=== PATIENT | female | born 1975 | race Caucasian/White ===

== ENCOUNTER 2016-11-21 12:54 | Emergency (ER) | payer OTHER ==
[~2016-11-21] VITALS: Ht 162.6 cm; Wt 105.0 kg
[~2016-11-21 12:54] MED LIST: CHILDREN'S CHE1 EACH PO; GLUCOPHAGE XR,500 MG PO; GLUCOPHAGE500 MG PO; HYDROCODON-ACE1 EAC7 PO; LOPRESSOR25 MG PO; VITAMIN B-121000 MC1 SL; VOLTAREN75 MG PO; ZOFRAN4 MG PO
[2016-11-21 13:26] LABS: HEMATOCRIT 43.4 % (36.0-46.0); MCH 28.8 PG (29.0-34.0); MCHC 34.3 G/DL (30.0-36.0); MCV 83.8 FL (83-99); MEAN PLAT.VOLUME 10.3 uM^3 (9.5-12.4); PLATELET COUNT 226 K/uL (156-360); RBC DIS.WIDTH-CV 11.9 % (11.8-14.6); RBC DIS.WIDTH-SD 35.8 % (39-53); RED BLOOD COUNT 5.18 M/uL (3.80-5.20); WHITE BLOOD COUNT 9.4 K/uL (4.1-10.2)
[2016-11-21 13:34] LABS: CHLORIDE 105 mEq/L (99-109); POTASSIUM 3.6 mEq/L (3.7-5.4); SODIUM 138 mEq/L (136-147)
[2016-11-21 13:37] LABS: GLUCOSE 97 mg/dL (70-99)
[2016-11-21 13:38] LABS: ANION GAP 13 MEQ/L (2-14); TOTAL BILIRUBIN 0.9 mg/dL (0.0-1.0)
[2016-11-21 13:40] LABS: ALKALINE PHOSPHATASE 69 IU/L (3-129); GFR ESTIMATE (CALCULATED) > 59 mL/min/
[2016-11-21 13:41] LABS: UREA NITROGEN (BUN) 10 mg/dL (9-23)
[2016-11-21 13:49] LABS: QUANTITATIVE HCG < 4.0 MIU/ML
[2016-11-21 13:52] LABS: ADD MIUA? YES; BILIRUBIN NEGATIVE; BLOOD MODERATE; COLOR YELLOW ((YELLOW)); GLUCOSE (STRIP) NEGATIVE; KETONES NEGATIVE; LEUKOCYTES LARGE; NITRITE NEGATIVE; PROTEIN (STRIP) 30; SPECIFIC GRAVITY 1.011 (1.000-1.030)
[2016-11-21 13:59] LABS: BACTERIA 1+ /HPF; EPITHELIAL CELLS 1+ /HPF; MUCUS TRACE /LPF; UCUL ADDED? NO; WHITE BLOOD CELLS 30-40 /HPF (0-5)
[2016-11-21] MEDS ORDERED: OMEPRAZOLE40 M1 PO (15:32)
[2016-11-21 15:41] VITALS: BP 112/69
== END 2016-11-21 15:42 | disposition home or self-care (01) ==
LOC: EME 12:54
DX: R10.13 Epigastric pain (principal); Z98.84 Bariatric surgery status; Z90.49 Acquired absence of other specified parts of digestive tract; I10 Essential (primary) hypertension; E11.9 Type 2 diabetes mellitus without complications; Z79.84 Long term (current) use of oral hypoglycemic drugs; Z87.891 Personal history of nicotine dependence
CPT/HCPCS: 71020; 74176; 80053; 81003; 84702; 85027; 99281; 99284

== ENCOUNTER → 2017-02-27 | Outpatient (CLI) | payer OTHER ==
[~2017-02-27] MED LIST changes: +BIOTIN1 MG PO; +CALCET CREAMY1 EACH PO; +CHEWABLE-VITE1 EAC1 PO; +FIBER GUMMIES1 EACH PO; +OMEPRAZOLE40 M1 PO; +PERCOCET 5/31 TABLET PO
== END | disposition home or self-care (01) ==
LOC: CDC 15:18
DX: Z01.810 Encounter for preprocedural cardiovascular examination (principal); I10 Essential (primary) hypertension; E11.9 Type 2 diabetes mellitus without complications; R00.1 Bradycardia, unspecified
CPT/HCPCS: 93000